=== PATIENT | female | born 1975 | race Caucasian/White ===

== ENCOUNTER 2018-07-14 10:03 | Outpatient (CLI) | payer OTHER ==
--- NOTE | 2018-07-14 11:18 | ULT ---
RIGHT BREAST ULTRASOUND: Comparison: Mammograms 07-14-18, 07-06-18. History: Focal asymmetry seen in the lower inner aspect of the right breast on screening mammography. Technique: Multiplanar grayscale and color doppler images were obtained in a targeted ultrasound of t he right breast. FINDINGS: There is a cluster of cysts in the 4 o'clock position of the right breast with the appearance of apoc rine metaplasia. This measures 1.3 x 0.8 x 1.3 cm in size and corresponds to the mammographic abnorma lity. No suspicious shadowing or suspicious solid mass is identified. IMPRESSION: BIRADS category 2 - benign findings. Annual screening mammography is recommended. POS: TAMERA
== END 2018-07-14 10:04 | disposition home or self-care (01) ==
LOC: BICMAMMO 10:03
PROVIDERS: ATTEND Obstetrics & Gynecology
DX: N63.10 Unspecified lump in the right breast, unspecified quadrant (principal)
CPT/HCPCS: G0279

== ENCOUNTER 2018-07-18 07:10 | Outpatient (CLI) | payer OTHER ==
--- NOTE | 2018-07-18 08:54 | ULT ---
RIGHT UPPER QUADRANT ABDOMINAL ULTRASOUND: COMPARISON: None. HISTORY: Right upper quadrant abdominal pain. TECHNIQUE: Multiplanar, alfonso scale, and color Doppler images were obtained in a right upper quadrant abdominal u ltrasound. FINDINGS: The liver is normal in echogenicity without focal lesions or intrahepatic ductal dilatation. There a re small nonshadowing echogenic foci in the gallbladder which may represent gallbladder sludge. Ther e is no gallbladder wall thickening or pericholecystic fluid. He common bile duct is normal measurin g 2 mm. The visualized portions of the pancreas are unremarkable. There right kidney is normal in echogenici ty without hydronephrosis or calculus and measures 10.1 cm in length. IMPRESSION: gallbladder sludge. POS: TAMERA
== END 2018-07-18 07:11 | disposition home or self-care (01) ==
LOC: SCSULT 07:10
PROVIDERS: ATTEND Internal Medicine Gastroenterology
DX: K21.9 Gastro-esophageal reflux disease without esophagitis (principal); R10.12 Left upper quadrant pain; R14.0 Abdominal distension (gaseous); K82.9 Disease of gallbladder, unspecified
CPT/HCPCS: 76705

== ENCOUNTER 2018-07-27 07:38 | Outpatient (CLI) | payer OTHER ==
--- NOTE | 2018-07-27 12:05 | NM ---
NUCLEAR MEDICINE HIDA SCAN: HISTORY: Right upper quadrant pain. COMPARISON: None. CORRELATION: Gallbladder ultrasound from 07/18/2018. TECHNIQUE: The patient was administered 5.2 millicuries of technetium 99m mebrofenin intravenously. The gallbla dder ejection fraction was determined after the patient was administered 8 oz of Ensure orally. FINDINGS: Appropriate uptake of the radiotracer by the hepatic parenchyma. There is prompt excretion of the ra diotracer into the intrahepatic biliary system. Localization of radiotracer in the gallbladder as ea rly as 12 minutes. Passage of radiotracer from the common bile duct into small bowel loops. Ejection fraction is 58%. IMPRESSION: 1. No scintigraphic evidence of acute cholecystitis. 2. Ejection fraction 58%. POS: TAMERA
== END 2018-07-27 07:39 | disposition home or self-care (01) ==
LOC: NM 07:38
PROVIDERS: ATTEND Internal Medicine Gastroenterology
DX: R10.11 Right upper quadrant pain (principal); R94.8 Abnormal results of function studies of other organs and systems
CPT/HCPCS: 78227; A9537

== ENCOUNTER 2018-07-29 07:30 | Outpatient (CLI) | payer OTHER ==
[2018-07-29] MEDS ORDERED: Iopamidol 300 61% 100 ML VIAL FS ONE (09:00)
--- NOTE | 2018-07-29 10:51 | CT ---
CT ABDOMEN AND PELVIS WITH CONTRAST: Multiple axial tomograms are obtained through the abdomen and pelvis with IV enhancement. INDICATION: Abdominal pain with bloating. Nausea. History of incisional hernia. COMPARISON: Comparison is made to CT abdomen and pelvis dated April. FINDINGS: Lung bases clear. There is a new hypodense lesion in the right lobe of the liver measuring approximately 2.0 cm on luis angel nal images. This lesion was not present on a 2015 exam. Close followup is recommended. The liver is otherwise unremarkable. Spleen and pancreas unremarkable. Adrenal glands and kidneys unremarkable. Nonspecific distention of jejunal loops. Ileal loops appear unremarkable. Appendix appears unremark able. Stool throughout the colon. Aorta normal caliber. No evidence of adenopathy. Images through the pelvis show a prominent uterus. Myometrium is heterogenous possibly representing uterine fibroids. Endometrial stripe is prominent. There are 2 small left ovarian cysts, the larges t measuring approximately 1.5 cm. IMPRESSION: 1. There is a new low-density lesion in the right lobe of the liver measuring approximately 1 cm. T his is an indeterminate lesion which was not present in 2015. Densities do not suggest a simple cyst . Consider MRI abdomen with and without contrast following liver mass protocol. 2. Nonspecific distention of jejunal loops. This could represent nonspecific enteritis. 3. Uterus is prominent with mildly heterogeneous myometrium. Question prominent endometrium. Small left ovarian follicular cysts are noted. POS: TAMERA
== END 2018-07-29 07:31 | disposition home or self-care (01) ==
LOC: SCSCT 07:30
PROVIDERS: ATTEND Internal Medicine Gastroenterology
DX: R14.0 Abdominal distension (gaseous) (principal); K76.9 Liver disease, unspecified; K63.89 Other specified diseases of intestine; N83.02 Follicular cyst of left ovary
CPT/HCPCS: 74177; Q9967

== ENCOUNTER 2018-08-05 14:18 | Outpatient (CLI) | payer OTHER ==
[~2018-08-05 14:18] MED LIST: Gadobenate Dimeglumine 529 MG/1 ML (20ML VIAL) ONE
--- NOTE | 2018-08-05 16:03 | MRI ---
MRI ABDOMEN WITH AND WITHOUT CONTRAST: HISTORY: Liver lesion seen on prior CT. Abdominal bloating with nausea. Right-sided abdominal pain. COMPARISON: None. TECHNIQUE: Multiplanar, multisequence MR images were obtained of the abdomen with and without IV contrast. FINDINGS: There is a lesion in the central liver, measuring 1.8 cm in size, that demonstrates high T2 signal. After contrast, this demonstrates peripheral puddling with fill-in and is consistent with a hemangiom a. In the right lobe of the liver, there is a lesion measuring 1.3 cm in greatest dimension, which a lso demonstrates gradual fill-in and is consistent with a hemangioma. A third lesion at the anterior aspect of the liver, measuring 1.1 cm in size, demonstrates early arterial enhancement but also demo nstrates high T2 signal and likely represents a flash-filling hemangioma. There may be a second flas h-filling hemangioma, measuring 1.4 cm in size, in the right lobe of the liver, immediately adjacent to the hepatic vein. No suspicious liver lesions are seen. The gallbladder, kidneys, adrenal glands, spleen, and pancreas are unremarkable. No abdominal adenop athy is seen. No marrow signal abnormality is present. The abdominal wall soft tissues are unremarkable. IMPRESSION: Hepatic hemangiomas without suspicious liver lesions identified. POS: H
== END 2018-08-05 14:19 | disposition home or self-care (01) ==
LOC: BICMRI 14:18
PROVIDERS: ATTEND Internal Medicine Gastroenterology
DX: R93.5 Abnormal findings on diagnostic imaging of other abdominal regions, including retroperitoneum (principal); D18.03 Hemangioma of intra-abdominal structures
CPT/HCPCS: 74183; A9577

== ENCOUNTER 2018-10-03 10:29 | Outpatient (CLI) | payer OTHER ==
--- NOTE | 2018-10-03 11:25 | RAD ---
CERVICAL SPINE SERIES 3 VIEWS: HISTORY: Neck pain and right radicular symptoms. FINDINGS: The patient has reversal of the normal cervical curve which could be positional or related to muscle spasm. There is some posterior osteophytic change and moderate disk narrowing at C5-6 and also some moderate disk narrowing at C6-7. Facets are in normal alignment. IMPRESSION: Moderate degenerative disk narrowing of the lower cervical spine. POS: TPC
== END 2018-10-03 10:30 | disposition home or self-care (01) ==
LOC: BICRAD 10:29
PROVIDERS: ATTEND Internal Medicine
DX: M54.2 Cervicalgia (principal); M48.02 Spinal stenosis, cervical region
CPT/HCPCS: 72040

== ENCOUNTER 2018-10-06 10:35 | Outpatient (CLI) | payer OTHER ==
--- NOTE | 2018-10-06 11:37 | MRI ---
MRI cervical spine noncontrast HISTORY: Neck pain with bilateral arm radiculopathy, right greater than left. FINDINGS: Reversal of the normal lordotic curvature. Desiccation of all of the intervertebral discs. Vertebral body heights are maintained. C2-3, C3-4, C4-5: Mild osteophytosis. The central canal and neural foramina are patent. C5-6: Disc space narrowing. Posterior osteophyte/disc complex is prominent, with significant flatteni ng of the ventral aspect of the thecal sac and spinal cord. No abnormal signals apparent within the cord. The osteophyte/disc complex and facet hypertrophy result in severe right and moderate left fora raine stenoses. C6-7: Mild osteophyte/disc complex with slight effacement of the thecal sac but no significant compre ssion of the spinal cord. Moderate right and mild left foraminal stenoses. C7-T1: Central canal and neural foramina are patent. IMPRESSION: Severe degenerative changes at the C5-6 level, including severe central canal and right n eural foraminal stenosis and moderate left foraminal stenosis.
== END 2018-10-06 10:36 | disposition home or self-care (01) ==
LOC: BICMRI 10:35
PROVIDERS: ATTEND Internal Medicine
DX: M50.30 Other cervical disc degeneration, unspecified cervical region (principal); M47.816 Spondylosis without myelopathy or radiculopathy, lumbar region; M48.02 Spinal stenosis, cervical region
CPT/HCPCS: 72141

== ENCOUNTER 2019-02-06 08:25 | Outpatient (CLI) | payer OTHER ==
[2019-02-06] MEDS ORDERED: Gadobenate Dimeglumine 529 MG/1 ML (20ML VIAL) ONE (10:55)
--- NOTE | 2019-02-06 16:40 | MRI ---
Brain MRI with and without contrast: 02/06/2019 COMPARISON: None HISTORY: Right hand tremors, right-sided paresthesias, tremors of the right hand TECHNIQUE: Multiplanar multisequence MR imaging of the brain obtained with and without contrast FINDINGS: The diffusion weighted imaging demonstrates no evidence for acute infarction. The axial gradient echo imaging demonstrates no evidence for intracranial hemorrhage. The imaged paranasal sinuses and mastoid air cells demonstrate normal signal intensity. Arterial flow voids at the axial level of the skull base appear grossly unremarkable on the T2-weight ed imaging. No midline shift or mass effect is noted. No ventricular enlargement is seen. Postcontrast imaging demonstrates no abnormal enhancement within the brain parenchyma. IMPRESSION: Unremarkable contrast enhanced brain MRI.
--- NOTE | 2019-02-06 16:42 | MRI ---
MRI Cervical spine with and without contrast: HISTORY: Cervical stenosis of spinal canal. Tremors in right hand. History of prior cervical spine surgery. COMPARISON: 10/06/2018. FINDINGS: The craniocervical junction is unremarkable. No significant cord signal abnormality. Metallic susceptibility artifact is noted related to anterior plate and screws transfixing the C5-C6 level with suggestion of intradiscal prosthesis in place. Paravertebral soft tissues have a normal appearance. No abnormal areas of enhancement are seen after the administration of intravenous contrast. C1-2:No significant stenosis. C2-3: There is no disc bulge or disc herniation. The central spinal canal and neural foramina are pat ent. C3-4: There is no disc bulge or disc herniation. The central spinal canal and neural foramina are pat ent. C4-5: There is a tiny focal central disc protrusion which narrows the ventral subarachnoid space. Thi s does encroach on the central aspect of the spinal cord with slight flattening of the central spinal cord anteriorly. Normal signal intensity is seen in the spinal cord. The neural foramina are p atent C5-6: There is mild posterior osteophyte formation which slightly narrows ventral subarachnoid space with minimal right-sided neural foraminal narrowing. The left neural foramen is patent C6-7: Central spinal canal and neural foramina appear patent. C7-T1: There is no disc bulge or disc herniation. The central spinal canal and neural foramina are pa tent. IMPRESSION: Postoperative changes related to anterior cervical fusion at the C5-6 level. No high-grade central ca nal or neural foraminal narrowing is seen at any level.
== END 2019-02-06 08:26 | disposition home or self-care (01) ==
LOC: BICMRI 08:25
PROVIDERS: ATTEND Specialist
DX: R53.1 Weakness (principal); M48.02 Spinal stenosis, cervical region; M96.1 Postlaminectomy syndrome, not elsewhere classified; Z98.1 Arthrodesis status
CPT/HCPCS: 70553; 72156; A9577

== ENCOUNTER 2019-04-12 12:05 | Outpatient (CLI) | payer OTHER ==
[2019-04-12] MEDS ORDERED: Magnevist 469MG/ML 20 ML VIAL ONE (14:35)
--- NOTE | 2019-04-12 15:43 | MRI ---
MRI OF THE BILATERAL BREAST WITHOUT AND WITH CONTRAST: 04/12/19 COMPARISON: Mammogram and ultrasound 07/14/18. HISTORY: 43-year-old female. Milky discharge from the right nipple and itching of the right breast. TECHNIQUE: Multiplanar and multisequence MR images obtained of the right breast without and with IV contrast. FINDINGS: Heterogeneously dense breast parenchyma is seen. There is edema within the breast parenchyma within t he right breast. High T2 signal which likely represents fluid within the ducts is seen extending up t o the right nipple. Mild background parenchymal enhancement is seen bilaterally. Within the central aspect of the right b reast, slightly below the nipple at 6 o'clock position, there are four areas of potential nodularity extending up toward the nipple. The largest measures 8 mm in size. These demonstrate plateau enhancem ent curve. No axillary adenopathy is seen. No internal mammary lymph nodes are identified. The visualized anteri or liver is unremarkable. IMPRESSION: Nonspecific areas of enhancement in the central right breast. These could potentially represent smal l papillomas or a breast tumor. This could also represent slightly more nodular background parenchyma l enhancement. No ultrasound correlate is seen with recent ultrasound. BI-RADS 4: Suspicious Abnormality - An MRI guided Biopsy of the right breast Should Be Considered Usually requires biopsy POS: TPC
== END 2019-04-12 12:06 | disposition home or self-care (01) ==
LOC: BICMRI 12:05
PROVIDERS: ATTEND Surgery
DX: N64.52 Nipple discharge (principal)
CPT/HCPCS: A9579; C8908

== ENCOUNTER 2019-06-15 13:45 | Outpatient (CLI) | payer OTHER ==
--- NOTE | 2019-06-15 15:10 | ULT ---
EXAM: Bilateral lower extremity arterial ultrasound HISTORY: Diminished pulses in the feet. COMPARISON: None TECHNIQUE: Multiplanar grayscale and color Doppler images were obtained and a bilateral lower extrem ity arterial ultrasound. Spectral analysis of the Doppler waveforms were performed. FINDINGS: No significant calcified plaque is seen in bilateral lower extremities. Right lower extremity: Common femoral artery: Triphasic Profundofemoral artery: Triphasic Superficial femoral artery: Triphasic Popliteal artery: Triphasic Anterior tibial artery: Monophasic Posterior tibial artery: Triphasic Dorsalis pedis artery: Monophasic No significant increase in velocity is seen from a more proximal to a distal segment to suggest an ar ea of focal atherosclerotic disease. Left lower extremity: Common femoral artery: Triphasic Profundofemoral artery: Triphasic Superficial femoral artery: Triphasic Popliteal artery: Triphasic Anterior tibial artery: Triphasic Posterior tibial artery: Triphasic Dorsalis pedis artery: Triphasic No significant increase in velocity is seen from a more proximal to a distal segment to suggest an ar ea of focal atherosclerotic disease. IMPRESSION: Monophasic waveforms in the right anterior tibial artery/dorsalis pedis artery is nonspecific. This l ikely is not clinically significant.
== END 2019-06-15 13:46 | disposition home or self-care (01) ==
LOC: ULT 13:45
PROVIDERS: ATTEND Internal Medicine
DX: R09.89 Other specified symptoms and signs involving the circulatory and respiratory systems (principal)
CPT/HCPCS: 93923

== ENCOUNTER 2019-08-03 08:15 | Outpatient (CLI) | payer OTHER ==
--- NOTE | 2019-08-03 10:14 | ULT ---
EXAM: Abdominal ultrasound complete: HISTORY: Follow-up liver hemangiomas COMPARISON: MRI, 08/05/2018 FINDINGS: 1 focal 1.2 x 1.4 cm echogenic focus in the anterior aspect of the right liver corresponding to one o f the previously demonstrated hemangiomas. The gallbladder demonstrates no evidence for gallstones, wall thickening, or pericholecystic fluid. The common bile duct is Within normal limits. Visualized pancreas: Unremarkable. Visualized abdominal aorta: Unremarkable. Visualized IVC: Unremarkable. Visualized spleen: Unremarkable. Visualized kidneys: No evidence for hydronephrosis or solid or cystic mass. No mass, abscess, adenopathy, or abnormal fluid collection or other acute process. IMPRESSION: 1 of the previously demonstrated liver hemangiomas is demonstrated in the right lobe.
== END 2019-08-03 08:16 | disposition home or self-care (01) ==
LOC: SCSMRI 08:15 → SCSULT 08:16
PROVIDERS: ATTEND Internal Medicine Gastroenterology
DX: R93.5 Abnormal findings on diagnostic imaging of other abdominal regions, including retroperitoneum (principal); R14.0 Abdominal distension (gaseous); D18.09 Hemangioma of other sites
CPT/HCPCS: 93975

== ENCOUNTER 2019-12-29 05:36 | Outpatient (CLI) | payer OTHER ==
[2019-12-29 16:34] LABS: #Eosinphils 0.1 thou/uL (0.0-0.7); #Lymphocytes 1.9 thou/uL (1.20-3.40); #Monocytes 0.5 thou/uL (0.11-0.59); %Basophils 0.4 % (0.0-1.0); %Eosinophils 2.2 % (0.0-10.0); %Lymphocytes 29.3 % (21.0-51.0); %Monocytes 7.5 % (0.0-10.0); %Neutrophils 60.5 % (42.0-75.0); Hemoglobin 14.2 g/dL (12.0-16.0); Mean Corpuscular HGB CONC 32.7 g/dL (32.0-36.0); Mean Corpuscular Hemoglobin 31.7 pg (27.0-31.0); Mean Corpuscular Volume 96.9 fL (78.0-98.0); Mean Platelet Volume 8.9 fL (7.4-10.4); Platelet Count 228 thou/uL (130-400); RBC Distribution Width 11.6 % (11.5-14.5); Red Blood Cell (RBC) Count 4.47 mill/uL (4.20-5.40); White Blood Cell (WBC) Count 6.5 thou/uL (4.8-10.8)
[2019-12-30 14:44] LABS: SARS-CoV-2 MS2 Positive; SARS-CoV-2 N Gene Negative; SARS-CoV-2 S Gene Negative; SARS-CoV-2 by NAA Not Detected (NotDetected); SARS-CoV-2 orf1ab Negative
== END 2019-12-29 05:37 | disposition home or self-care (01) ==
LOC: LABBT 05:36
PROVIDERS: ATTEND Orthopaedic Surgery
DX: Z01.812 Encounter for preprocedural laboratory examination (principal); Z11.59 Encounter for screening for other viral diseases; G56.03 Carpal tunnel syndrome, bilateral upper limbs
CPT/HCPCS: 84702; 85025; 87635; U0003

== ENCOUNTER 2023-07-22 14:56 | Outpatient (CLI) | payer OTHER | END 2023-07-22 14:57 | disposition home or self-care (01) | LOC: ULT 14:56 | PROVIDERS: ATTEND Internal Medicine | DX: E04.2 Nontoxic multinodular goiter (principal) | CPT/HCPCS: 76536 ==